=== PATIENT | female | born 1975 | race Caucasian/White ===

== ENCOUNTER 2016-12-11 12:20 | Inpatient (IN) | payer MEDICARE, OTHER ==
[~2016-12-11] VITALS: Ht 167.6 cm; Wt 69.8 kg
[~2016-12-11 12:20] MED LIST: ALPR0.5T6 PO; ATEN50TA41 PO; BACL-19 PO; CARI350T PO; CARI350T14 PO; CITA20TA5 PO; DICL1ADH5 TD; DOCU-30 PO; FLUD0.1T PO; METH1TAB13 PO; METH1TAB21 PO; METO10TA2 PO; MIRT30TA PO; MIRT30TA6 PO; MORP15TA3 PO; NAPR500T PO; NAPR500T3 PO; OMEP-110 PO; ONDA-39 PO; ONDA4TAB10 PO; ONDA4TAB13 SL; OXYC1TAB7 PO; OXYC20TA42 PO; PENT100C2 PO; POLY17PO5 PO; ROSU20TA PO; SUMA100T4 PO; TIAG2TAB PO; TOPI50TA35 PO; TOPI50TA77 PO; TRAZ100T15 PO; ZOLP10TA PO; morphine IR PO
[2016-12-11] MEDS ORDERED: VENL150C PO (12:59)
[2016-12-11] MEDS ORDERED: SODIUM CHLORIDE 0.9% 1,000ML IVBOLUS ONE ×2 (13:00→18:00)
[2016-12-11] MEDS ORDERED: ONDANSETRON 2MG/ML, 2ML IVPush ONE (13:00)
[2016-12-11] MEDS ORDERED: SODIUM CHLORIDE FLUSH 10ML SYR IVF ONE (13:00)
[2016-12-11] MEDS ORDERED: NALO25TA PO (13:02)
[2016-12-11] MEDS ORDERED: ONDANSETRON 2MG/ML, 2ML ONE (13:21)
[2016-12-11] MEDS ORDERED: HYDROmorphone 1 MG/ML, 1ML ONE ×3 (13:21→15:40)
[2016-12-11] MEDS: HYDROmorphone 1 MG/ML, 1ML IVPush PRN ×2 (13:31→15:45)
[2016-12-11 13:44] LABS: BLOOD UREA NITROGEN 51 mg/dL (7-18)
[2016-12-11 13:49] LABS: ASPARTATE AMINO TRANSFERASE 21 U/L (15-37)
[2016-12-11] MEDS ORDERED: FAMOTIDINE 20 MG/2 ML ONE (14:21)
[2016-12-11] MEDS ORDERED: FAMOTIDINE 20 MG/2 ML IVPush ONE (14:30)
[2016-12-11] MEDS ORDERED: OMNIPAQUE 350 MG/ML, 100ML BOTTLE ONE (14:47)
[2016-12-11] MEDS ORDERED: CEFTRIAXONE 1,000 MG in SODIUM CHLORIDE 0.9% 100 ML IV ONE (16:30)
[2016-12-11] MEDS ORDERED: BISACODYL 10 MG SUPP PR PRN (17:30)
[2016-12-11] MEDS ORDERED: CEFTRIAXONE 1,000 MG in SODIUM CHLORIDE 0.9% 50 ML IV SCH (17:30)
[2016-12-11] MEDS ORDERED: PROMETHAZINE 25 MG/ML, 1ML IM PRN (17:30)
[2016-12-11] MEDS: ENOXAPARIN 40 MG/0.4 ML SQ SCH (17:44)
[2016-12-11] MEDS: LACTATED RINGERS 1,000 ML IV SCH (18:39)
[2016-12-11 20:00] VITALS: BP 118/86
[2016-12-11] MEDS: FAMOTIDINE 20 MG/2 ML IVPush SCH (21:00)
[2016-12-11] MEDS: HYDROmorphone 2 MG/ML, 1ML IVPush PRN (21:42)
[2016-12-12] MEDS: LORazepam 2 MG/ML, 1ML IVPush PRN ×3 (01:46→21:13)
[2016-12-12] MEDS: HYDROmorphone 2 MG/ML, 1ML IVPush PRN ×6 (01:46→21:13)
[2016-12-12] MEDS: LACTATED RINGERS 1,000 ML IV SCH ×3 (01:59→17:53)
[2016-12-12 03:00] VITALS: BP 121/84
[2016-12-12 06:09] LABS: BLOOD UREA NITROGEN 36 mg/dL (7-18)
[2016-12-12] MEDS: FAMOTIDINE 20 MG/2 ML IVPush SCH ×2 (08:00→21:13)
[2016-12-12] MEDS: ONDANSETRON 2MG/ML, 2ML IVPush PRN ×2 (08:09→14:02)
[2016-12-12 08:55] VITALS: BP 130/78
[2016-12-12] MEDS ORDERED: HYDROmorphone 1 MG/ML, 1ML ONE ×2 (11:00→13:57)
[2016-12-12 14:16] VITALS: BP 131/96
[2016-12-12] MEDS ORDERED: CEFTRIAXONE PMX 1GM/50ML 50 ML IV SCH (17:30)
[2016-12-12] MEDS: ENOXAPARIN 40 MG/0.4 ML SQ SCH (17:53)
[2016-12-13] MEDS: LACTATED RINGERS 1,000 ML IV SCH ×2 (02:55→10:00)
[2016-12-13 03:01] VITALS: BP 142/95
[2016-12-13] MEDS: LORazepam 2 MG/ML, 1ML IVPush PRN (06:45)
[2016-12-13] MEDS: HYDROmorphone 2 MG/ML, 1ML IVPush PRN (06:45)
[2016-12-13 07:49] LABS: BLOOD UREA NITROGEN 21 mg/dL (7-18)
[2016-12-13 07:55] VITALS: BP 153/91
[2016-12-13] MEDS: FAMOTIDINE 20 MG/2 ML IVPush SCH (09:20)
[2016-12-13] MEDS ORDERED: VENLAFAXINE 75 MG CAP ER PO SCH (09:30)
[2016-12-13] MEDS ORDERED: CARISOPRODOL 350 MG TABLET PO PRN (09:30)
[2016-12-13] MEDS ORDERED: CEFD300C37 PO (11:03)
[2016-12-13] MEDS ORDERED: POLY17PO5 PO (11:16)
[2016-12-13 11:44] VITALS: BP 130/92
[2016-12-13] MEDS ORDERED: MIRTAZAPINE 30 MG TAB.RAPDIS PO SCH (21:00)
[2016-12-13] MEDS ORDERED: CEFDINIR 300 MG CAPSULE PO SCH (21:00)
== END 2016-12-13 11:50 | disposition home or self-care (01) | DRG 438 ==
LOC: ED 14:38 → SUATTDRO 16:44 → EDIP 17:05 → 4NOR 17:38
DX: K85.80 Other acute pancreatitis without necrosis or infection (principal); N17.0 Acute kidney failure with tubular necrosis; K56.60 Unspecified intestinal obstruction; R71.0 Precipitous drop in hematocrit; N39.0 Urinary tract infection, site not specified; B96.20 Unspecified Escherichia coli [E. coli] as the cause of diseases classified elsewhere; F32.9 Major depressive disorder, single episode, unspecified; F41.9 Anxiety disorder, unspecified; E78.5 Hyperlipidemia, unspecified; G40.909 Epilepsy, unspecified, not intractable, without status epilepticus; D72.829 Elevated white blood cell count, unspecified; G89.4 Chronic pain syndrome; I10 Essential (primary) hypertension; M79.7 Fibromyalgia; B96.29 Other Escherichia coli [E. coli] as the cause of diseases classified elsewhere; Z85.42 Personal history of malignant neoplasm of other parts of uterus; Z85.43 Personal history of malignant neoplasm of ovary; Z85.51 Personal history of malignant neoplasm of bladder; Z92.21 Personal history of antineoplastic chemotherapy; Z90.710 Acquired absence of both cervix and uterus; Z98.0 Intestinal bypass and anastomosis status; Z90.49 Acquired absence of other specified parts of digestive tract; Z90.721 Acquired absence of ovaries, unilateral; Z93.6 Other artificial openings of urinary tract status; Z88.5 Allergy status to narcotic agent; Z88.1 Allergy status to other antibiotic agents; Z88.6 Allergy status to analgesic agent; Z91.048 Other nonmedicinal substance allergy status; Z79.891 Long term (current) use of opiate analgesic; Z85.068 Personal history of other malignant neoplasm of small intestine; Z87.891 Personal history of nicotine dependence; Z92.3 Personal history of irradiation; Z98.84 Bariatric surgery status
CPT/HCPCS: 36415; 74020; 74177; 80048; 80053; 81001; 83690; 84478; 85025; 87077; 87086; 87186; 87210; 87808; 96361; 96374; 96375; 96376; J0696; J1170; J1650; J2405; Q9967; J2060; J7030; J7120; S0028

== ENCOUNTER 2017-02-25 03:17 | Inpatient (IN) | payer MEDICARE, OTHER ==
[~2017-02-25] VITALS: Ht 177.8 cm; Wt 74.9 kg
[~2017-02-25 03:17] MED LIST changes: +CEFD300C37 PO; +DICL1ADH15 TD; -DICL1ADH5 TD; +DOCU-131 PO; -DOCU-30 PO; +NALO25TA PO; -ONDA-39 PO; +ONDA4TAB12 PO; -TOPI50TA77 PO; +TOPI50TA8 PO; +VENL150C PO
[2017-02-25] MEDS ORDERED: SODIUM CHLORIDE FLUSH 10ML SYR IVF ONE (03:30)
[2017-02-25] MEDS ORDERED: LORazepam 2 MG/ML, 1ML IVPush ONE (03:30)
[2017-02-25] MEDS ORDERED: SODIUM CHLORIDE 0.9% 1,000ML IVBOLUS ONE (03:30)
[2017-02-25 03:34] LABS: DAU SCREEN DISCLAIMER
[2017-02-25] MEDS ORDERED: LORazepam 2 MG/ML, 1ML ONE (03:48)
[2017-02-25 03:53] LABS: HEMATOCRIT 36.2 % (34.6-47.8); WHITE BLOOD COUNT 5.7 x10^3/uL (3.4-10)
[2017-02-25 04:04] LABS: ASPARTATE AMINO TRANSFERASE 15 U/L (15-37); BLOOD UREA NITROGEN 39 mg/dL (7-18)
[2017-02-25 04:13] LABS: ACETAMINOPHEN < 2 mcg/mL (10-30)
[2017-02-25] MEDS ORDERED: CEFTRIAXONE PMX 1GM/50ML 50 ML IV ONE (04:30)
[2017-02-25] MEDS ORDERED: CEFTRIAXONE PMX 1GM/50ML 50 ML ONE (04:47)
[2017-02-25] MEDS ORDERED: MIRT30TA3 PO (04:53)
[2017-02-25] MEDS ORDERED: OXYC-302 PO (04:53)
[2017-02-25] MEDS ORDERED: TRAZ100T15 PO (04:53)
[2017-02-25] MEDS ORDERED: METO10TA82 PO (04:53)
[2017-02-25] MEDS ORDERED: ZOLP10TA5 PO (04:53)
[2017-02-25] MEDS ORDERED: TEMAZEPAM 15 MG CAPSULE PO PRN (05:30)
[2017-02-25] MEDS ORDERED: hydrALAzine 20 MG/ML, 1ML IVPush PRN (05:30)
[2017-02-25] MEDS ORDERED: CEFTRIAXONE PMX 1GM/50ML 50 ML IV SCH (05:30)
[2017-02-25] MEDS ORDERED: ACETAMINOPHEN 325 MG TABLET PO PRN (05:30)
[2017-02-25] MEDS ORDERED: ONDANSETRON 2MG/ML, 2ML IVPush PRN (05:30)
[2017-02-25] MEDS: SODIUM CHLORIDE 0.9% 1,000 ML IV SCH ×3 (05:54→21:50)
[2017-02-25 07:32] VITALS: BP 112/78
[2017-02-25] MEDS: VENLAFAXINE 75 MG CAP ER PO SCH ×2 (08:02→20:02)
[2017-02-25] MEDS: HEPARIN 5,000 UNITS/ML, 1ML SQ SCH ×2 (08:02→16:52)
[2017-02-25 11:24] VITALS: BP 111/80
[2017-02-25 12:14] VITALS: BP 109/75
[2017-02-25 13:28] VITALS: BP 112/79
[2017-02-25] MEDS: ERTAPENEM 1 GM in SODIUM CHLORIDE 0.9% 50 ML IV SCH (13:40)
[2017-02-25] MEDS ORDERED: SUMATRIPTAN 6MG/0.5ML SQ PRN (14:30)
[2017-02-25 16:55] VITALS: BP 116/83
[2017-02-25 18:50] VITALS: BP 133/87
[2017-02-25] MEDS: TRAZODONE 100MG TABLET PO SCH (19:56)
[2017-02-25] MEDS: TOPIRAMATE 25 MG TABLET PO SCH (20:04)
[2017-02-25] MEDS: MIRTAZAPINE 30 MG TAB.RAPDIS PO SCH (20:04)
[2017-02-26 00:37] VITALS: BP 116/83
[2017-02-26] MEDS: SODIUM CHLORIDE 0.9% 1,000 ML IV SCH (05:15)
[2017-02-26] MEDS: HEPARIN 5,000 UNITS/ML, 1ML SQ SCH ×3 (05:15→19:55)
[2017-02-26 06:54] LABS: BLOOD UREA NITROGEN 30 mg/dL (7-18)
[2017-02-26 06:57] LABS: HEMATOCRIT 31.8 % (34.6-47.8); HEMOGLOBIN 10.5 g/dL (11.7-16.4); WHITE BLOOD COUNT 5.7 x10^3/uL (3.4-10)
[2017-02-26] MEDS ORDERED: D5%-0.45% NACL 1,000 ML IV SCH (07:30)
[2017-02-26 08:11] VITALS: BP 117/80
[2017-02-26] MEDS: VENLAFAXINE 75 MG CAP ER PO SCH ×2 (08:44→19:55)
[2017-02-26] MEDS: ERTAPENEM 1 GM in SODIUM CHLORIDE 0.9% 50 ML IV SCH (13:42)
[2017-02-26 13:56] VITALS: BP 130/88
[2017-02-26 18:56] VITALS: BP 137/89
[2017-02-26] MEDS: OXYcodone/APAP 5/325MG TABLET PO PRN (19:54)
[2017-02-26] MEDS: TOPIRAMATE 25 MG TABLET PO SCH (19:55)
[2017-02-26] MEDS: TRAZODONE 100MG TABLET PO SCH (19:55)
[2017-02-26] MEDS: MIRTAZAPINE 30 MG TAB.RAPDIS PO SCH (19:55)
[2017-02-27 02:42] VITALS: BP 107/77
[2017-02-27] MEDS: HEPARIN 5,000 UNITS/ML, 1ML SQ SCH ×3 (05:48→20:55)
[2017-02-27] MEDS: OXYcodone/APAP 5/325MG TABLET PO PRN (06:07)
[2017-02-27] MEDS ORDERED: D5%-0.45% NACL 1,000 ML IV SCH (07:30)
[2017-02-27 07:56] VITALS: BP 123/85
[2017-02-27] MEDS: VENLAFAXINE 75 MG CAP ER PO SCH ×2 (08:00→20:55)
[2017-02-27 11:05] LABS: HEMATOCRIT 31.4 % (34.6-47.8); HEMOGLOBIN 10.5 g/dL (11.7-16.4); WHITE BLOOD COUNT 3.9 x10^3/uL (3.4-10)
[2017-02-27 11:14] LABS: BLOOD UREA NITROGEN 18 mg/dL (7-18)
[2017-02-27] MEDS ORDERED: VANCOMYCIN PER PHARMACY MC PRN (13:30)
[2017-02-27] MEDS: ERTAPENEM 1 GM in SODIUM CHLORIDE 0.9% 50 ML IV SCH (13:43)
[2017-02-27] MEDS ORDERED: PHARMACOKINETIC CONSULTATION MC ONE (15:00)
[2017-02-27 15:30] VITALS: BP 123/84
[2017-02-27] MEDS ORDERED: PHARMACOKINETIC MONITORING MC PRN (15:30)
[2017-02-27] MEDS: VANCOMYCIN 1,400 MG in SODIUM CHLORIDE 0.9% 250 ML IV SCH (17:08)
[2017-02-27 18:54] VITALS: BP 125/89
[2017-02-27] MEDS: MIRTAZAPINE 30 MG TAB.RAPDIS PO SCH (20:55)
[2017-02-27] MEDS: TOPIRAMATE 25 MG TABLET PO SCH (20:55)
[2017-02-27] MEDS: TRAZODONE 100MG TABLET PO SCH (20:55)
[2017-02-28 01:44] VITALS: BP 101/67
[2017-02-28 05:16] LABS: HEMATOCRIT 33.3 % (34.6-47.8); HEMOGLOBIN 10.9 g/dL (11.7-16.4); WHITE BLOOD COUNT 6.5 x10^3/uL (3.4-10)
[2017-02-28 05:20] LABS: BLOOD UREA NITROGEN 25 mg/dL (7-18)
[2017-02-28] MEDS: VANCOMYCIN 1,400 MG in SODIUM CHLORIDE 0.9% 250 ML IV SCH ×2 (06:12→16:49)
[2017-02-28] MEDS: HEPARIN 5,000 UNITS/ML, 1ML SQ SCH ×3 (06:12→20:54)
[2017-02-28 06:50] VITALS: BP 111/72
[2017-02-28] MEDS: VENLAFAXINE 75 MG CAP ER PO SCH ×2 (07:55→20:54)
[2017-02-28] MEDS: ERTAPENEM 1 GM in SODIUM CHLORIDE 0.9% 50 ML IV SCH (13:19)
[2017-02-28 13:50] VITALS: BP 109/75
[2017-02-28 18:44] VITALS: BP 117/81
[2017-02-28] MEDS: TRAZODONE 100MG TABLET PO SCH (20:54)
[2017-02-28] MEDS: TOPIRAMATE 25 MG TABLET PO SCH (20:54)
[2017-02-28] MEDS: MIRTAZAPINE 30 MG TAB.RAPDIS PO SCH (20:54)
[2017-03-01 04:27] VITALS: BP 107/76
[2017-03-01] MEDS: HEPARIN 5,000 UNITS/ML, 1ML SQ SCH ×3 (04:29→19:54)
[2017-03-01] MEDS: VANCOMYCIN 1,400 MG in SODIUM CHLORIDE 0.9% 250 ML IV SCH ×2 (04:29→16:49)
[2017-03-01 05:43] LABS: BLOOD UREA NITROGEN 23 mg/dL (7-18)
[2017-03-01 07:46] VITALS: BP 122/85
[2017-03-01] MEDS: VENLAFAXINE 75 MG CAP ER PO SCH ×2 (08:23→19:54)
[2017-03-01] MEDS: ERTAPENEM 1 GM in SODIUM CHLORIDE 0.9% 50 ML IV SCH (13:37)
[2017-03-01] MEDS: HYDROcodone/APAP 5/325 TABLET PO PRN (13:37)
[2017-03-01 13:41] VITALS: BP 117/83
[2017-03-01] MEDS ORDERED: hydrALAzine 20 MG/ML, 1ML IVPush PRN (19:00)
[2017-03-01] MEDS ORDERED: ONDANSETRON 2MG/ML, 2ML IVPush PRN (19:00)
[2017-03-01] MEDS ORDERED: TEMAZEPAM 15 MG CAPSULE PO PRN (19:00)
[2017-03-01] MEDS ORDERED: PHARMACOKINETIC MONITORING MC PRN (19:00)
[2017-03-01] MEDS ORDERED: VANCOMYCIN PER PHARMACY MC PRN (19:00)
[2017-03-01] MEDS: TRAZODONE 100MG TABLET PO SCH (19:54)
[2017-03-01] MEDS: TOPIRAMATE 25 MG TABLET PO SCH (19:54)
[2017-03-01] MEDS: MIRTAZAPINE 30 MG TAB.RAPDIS PO SCH (19:54)
[2017-03-01 20:00] VITALS: BP 113/78
[2017-03-02 02:00] VITALS: BP 100/67
[2017-03-02] MEDS: HEPARIN 5,000 UNITS/ML, 1ML SQ SCH ×3 (04:25→20:43)
[2017-03-02] MEDS: VANCOMYCIN 1,400 MG in SODIUM CHLORIDE 0.9% 250 ML IV SCH (04:25)
[2017-03-02 07:01] VITALS: BP 105/73
[2017-03-02] MEDS: VENLAFAXINE 75 MG CAP ER PO SCH ×2 (09:12→20:42)
[2017-03-02] MEDS: ERTAPENEM 1 GM in SODIUM CHLORIDE 0.9% 50 ML IV SCH (14:03)
[2017-03-02 14:10] VITALS: BP 117/84
[2017-03-02] MEDS: HYDROcodone/APAP 5/325 TABLET PO PRN (16:38)
[2017-03-02 20:01] VITALS: BP 103/71
[2017-03-02] MEDS: TRAZODONE 100MG TABLET PO SCH (20:42)
[2017-03-02] MEDS: TOPIRAMATE 25 MG TABLET PO SCH (20:43)
[2017-03-02] MEDS: MIRTAZAPINE 30 MG TAB.RAPDIS PO SCH (20:43)
[2017-03-03 02:00] VITALS: BP 95/65
[2017-03-03] MEDS: HEPARIN 5,000 UNITS/ML, 1ML SQ SCH ×3 (04:12→20:02)
[2017-03-03 06:43] VITALS: BP 105/70
[2017-03-03] MEDS: VENLAFAXINE 75 MG CAP ER PO SCH ×2 (09:23→20:01)
[2017-03-03] MEDS: ERTAPENEM 1 GM in SODIUM CHLORIDE 0.9% 50 ML IV SCH (12:41)
[2017-03-03 13:04] VITALS: BP 111/78
[2017-03-03] MEDS: HYDROcodone/APAP 5/325 TABLET PO PRN ×2 (13:12→19:59)
[2017-03-03] MEDS: SODIUM CHLORIDE 0.9% IV SCH (17:07)
[2017-03-03] MEDS: DAPTOMYCIN IV SCH (17:07)
[2017-03-03] MEDS ORDERED: LIDOCAINE 1%, 20ML ONE (17:38)
[2017-03-03 18:49] VITALS: BP 114/80
[2017-03-03] MEDS: TOPIRAMATE 25 MG TABLET PO SCH (20:00)
[2017-03-03] MEDS: MIRTAZAPINE 30 MG TAB.RAPDIS PO SCH (20:00)
[2017-03-03] MEDS: TRAZODONE 100MG TABLET PO SCH (20:01)
[2017-03-04 02:34] VITALS: BP 89/56
[2017-03-04 02:52] VITALS: BP 95/61
[2017-03-04] MEDS: HEPARIN 5,000 UNITS/ML, 1ML SQ SCH ×3 (05:16→21:11)
[2017-03-04 06:10] LABS: BLOOD UREA NITROGEN 31 mg/dL (7-18)
[2017-03-04] MEDS: VENLAFAXINE 75 MG CAP ER PO SCH ×2 (08:47→21:11)
[2017-03-04] MEDS: HYDROcodone/APAP 5/325 TABLET PO PRN ×2 (08:47→15:13)
[2017-03-04 08:50] VITALS: BP 105/69
[2017-03-04 13:20] VITALS: BP 112/77
[2017-03-04] MEDS: ERTAPENEM 1 GM in SODIUM CHLORIDE 0.9% 50 ML IV SCH (13:42)
[2017-03-04] MEDS: SODIUM CHLORIDE 0.9% IV SCH (15:13)
[2017-03-04] MEDS: DAPTOMYCIN IV SCH (15:13)
[2017-03-04 18:55] VITALS: BP 102/67
[2017-03-04] MEDS: TOPIRAMATE 25 MG TABLET PO SCH (21:11)
[2017-03-04] MEDS: MIRTAZAPINE 30 MG TAB.RAPDIS PO SCH (21:11)
[2017-03-04] MEDS: TRAZODONE 100MG TABLET PO SCH (21:41)
[2017-03-05 03:00] VITALS: BP 109/75
[2017-03-05] MEDS: HEPARIN 5,000 UNITS/ML, 1ML SQ SCH ×3 (05:11→20:19)
[2017-03-05 06:41] VITALS: BP 95/65
[2017-03-05] MEDS: VENLAFAXINE 75 MG CAP ER PO SCH ×2 (07:50→20:18)
[2017-03-05 13:03] VITALS: BP 98/67
[2017-03-05] MEDS: ERTAPENEM 1 GM in SODIUM CHLORIDE 0.9% 50 ML IV SCH (13:26)
[2017-03-05] MEDS: HYDROcodone/APAP 5/325 TABLET PO PRN (13:39)
[2017-03-05] MEDS: SODIUM CHLORIDE 0.9% IV SCH (15:24)
[2017-03-05] MEDS: DAPTOMYCIN IV SCH (15:24)
[2017-03-05 19:14] VITALS: BP 97/65
[2017-03-05] MEDS: MIRTAZAPINE 30 MG TAB.RAPDIS PO SCH (20:18)
[2017-03-05] MEDS: TRAZODONE 100MG TABLET PO SCH (20:18)
[2017-03-05] MEDS: TOPIRAMATE 25 MG TABLET PO SCH (20:19)
[2017-03-06 02:45] VITALS: BP 92/60
[2017-03-06] MEDS: HEPARIN 5,000 UNITS/ML, 1ML SQ SCH ×3 (05:00→21:09)
[2017-03-06] MEDS: VENLAFAXINE 75 MG CAP ER PO SCH ×2 (08:03→21:09)
[2017-03-06 08:04] VITALS: BP 101/67
[2017-03-06] MEDS: HYDROcodone/APAP 5/325 TABLET PO PRN ×2 (12:14→19:52)
[2017-03-06] MEDS: ERTAPENEM 1 GM in SODIUM CHLORIDE 0.9% 50 ML IV SCH (13:12)
[2017-03-06 13:20] VITALS: BP 120/83
[2017-03-06] MEDS: SODIUM CHLORIDE 0.9% IV SCH (14:55)
[2017-03-06] MEDS: DAPTOMYCIN IV SCH (14:55)
[2017-03-06 19:24] VITALS: BP 102/70
[2017-03-06] MEDS: MIRTAZAPINE 30 MG TAB.RAPDIS PO SCH (21:08)
[2017-03-06] MEDS: TRAZODONE 100MG TABLET PO SCH (21:09)
[2017-03-06] MEDS: TOPIRAMATE 25 MG TABLET PO SCH (21:09)
[2017-03-07 02:42] VITALS: BP 97/65
[2017-03-07] MEDS: HEPARIN 5,000 UNITS/ML, 1ML SQ SCH ×2 (05:20→12:00)
[2017-03-07] MEDS: VENLAFAXINE 75 MG CAP ER PO SCH (08:08)
[2017-03-07 08:30] VITALS: BP 98/66
[2017-03-07] MEDS ORDERED: CARISOPRODOL 350 MG TABLET PO PRN (11:00)
[2017-03-07] MEDS ORDERED: AMPICILLIN 500MG CAPSULE PO SCH (11:00)
[2017-03-07] MEDS: ERTAPENEM 1 GM in SODIUM CHLORIDE 0.9% 50 ML IV SCH (11:59)
[2017-03-07] MEDS ORDERED: AMPI500C2 PO (13:20)
== END 2017-03-07 14:00 | disposition home health service (06) | DRG 871 ==
LOC: ED 03:56 → EDIP 04:29 → 3NE 05:33 → 3NW 02-28 21:45
PROVIDERS: ADMIT Internal Medicine; ATTEND Internal Medicine
PROC: 02HV33Z Insertion of Infusion Device into Superior Vena Cava, Percutaneous Approach (ICD-10-PCS; principal; 2017-03-03)
PROC: B5181ZA Fluoroscopy of Superior Vena Cava using Low Osmolar Contrast, Guidance (ICD-10-PCS; 2017-03-03)
PROC: B548ZZA Ultrasonography of Superior Vena Cava, Guidance (ICD-10-PCS; 2017-03-03)
DX: A41.9 Sepsis, unspecified organism (principal); G93.41 Metabolic encephalopathy; N17.0 Acute kidney failure with tubular necrosis; K22.10 Ulcer of esophagus without bleeding; N12 Tubulo-interstitial nephritis, not specified as acute or chronic; N30.91 Cystitis, unspecified with hematuria; B96.1 Klebsiella pneumoniae [K. pneumoniae] as the cause of diseases classified elsewhere; B96.20 Unspecified Escherichia coli [E. coli] as the cause of diseases classified elsewhere; E78.5 Hyperlipidemia, unspecified; F17.200 Nicotine dependence, unspecified, uncomplicated; F32.9 Major depressive disorder, single episode, unspecified; G40.909 Epilepsy, unspecified, not intractable, without status epilepticus; G89.4 Chronic pain syndrome; I12.9 Hypertensive chronic kidney disease with stage 1 through stage 4 chronic kidney disease, or unspecified chronic kidney disease; N18.3 Chronic kidney disease, stage 3 (moderate); Z16.12 Extended spectrum beta lactamase (ESBL) resistance; Z79.891 Long term (current) use of opiate analgesic; Z85.42 Personal history of malignant neoplasm of other parts of uterus; Z88.6 Allergy status to analgesic agent; Z88.1 Allergy status to other antibiotic agents; Z88.8 Allergy status to other drugs, medicaments and biological substances; Z85.43 Personal history of malignant neoplasm of ovary; Z85.51 Personal history of malignant neoplasm of bladder; Z87.442 Personal history of urinary calculi; Z88.0 Allergy status to penicillin; Z90.710 Acquired absence of both cervix and uterus; Z98.84 Bariatric surgery status; Z87.440 Personal history of urinary (tract) infections
CPT/HCPCS: 36415; 36569; 70450; 71010; 72125; 74176; 76770; 76937; 77001; 80048; 80053; 80202; 80307; 80329; 81001; 82140; 82565; 83735; 84439; 84443; 84703; 85025; 87040; 87077; 87086; 87186; 93005; 95816; 95819; 96361; 96372; 96374; J0696; J0878; J1335; J1644; J3370; J3490; C1751; G0480; J2060; J3030; J7030; J7050

== ENCOUNTER 2018-05-15 11:37 | Inpatient (IN) | payer MEDICARE ==
[~2018-05-15] VITALS: Ht 177.8 cm; Wt 60.1 kg
[~2018-05-15 11:37] MED LIST changes: +AMPI500C2 PO; +ATEN25TA PO; -CITA20TA5 PO; +CITA20TA6 PO; +ERGO500017 PO; +ERTA1VIA IV; +METO10TA82 PO; +MIRT30TA3 PO; +MORP-52 PO; +NAPR-685 PO; +NAPR-856 PO; -NAPR500T PO; -NAPR500T3 PO; +ONDA4TAB7 PO; +OXYC-302 PO; +TRAZ-137 PO; -TRAZ100T15 PO; +VANC1VIA3 PO; +ZOLP10TA5 PO
[2018-05-15] MEDS ORDERED: SODIUM BICARBONATE 8.4% 150 MEQ in DEXTROSE 5% 1,000 ML IV SCH (12:30)
[2018-05-15 12:53] LABS: BASOPHILS # (AUTO) 0.02 x10^3/uL (0-0.1); BASOPHILS % (AUTO) 0 % (0-1); EOSINOPHILS # (AUTO) 0.13 x10^3/uL (0-0.4); EOSINOPHILS % (AUTO) 1 % (1-7); LYMPHOCYTES # (AUTO) 1.43 x10^3/uL (1-3.4); LYMPHOCYTES % (AUTO) 15 % (22-44); MD NO; MEAN CORPUSCULAR HEMOGLOBIN 29.4 pg (27.0-34.8); MEAN CORPUSCULAR HGB CONC 33.6 g/dL (32.4-35.8); MEAN CORPUSCULAR VOLUME 87.6 fL (80-100); MEAN PLATELET VOLUME 8.1 fL (7.4-10.4); MONOCYTES # (AUTO) 0.51 x10^3/uL (0.2-0.8); MONOCYTES % (AUTO) 6 % (2-9); NEUTROPHILS # (AUTO) 7.16 x10^3/uL (1.8-6.8); NEUTROPHILS % (AUTO) 77 % (42-75); PLATELET COUNT 353 x10^3/uL (130-400); RED BLOOD COUNT 4.64 x10^6/uL (3.82-5.3)
[2018-05-15 13:05] LABS: ALBUMIN 4.1 g/dL (3.4-5.0); ANION GAP 11 mmol/L (5-15); CALCIUM 9.2 mg/dL (8.5-10.1); CHLORIDE 106 mmol/L (98-107)
[2018-05-15 13:08] LABS: ALANINE AMINOTRANSFERASE 10 U/L (12-78); ALKALINE PHOSPHATASE 98 U/L (45-117); BILIRUBIN,TOTAL 0.4 mg/dL (0.2-1.0); CREATININE 2.46 mg/dL (0.55-1.02)
[2018-05-15] MEDS ORDERED: SODIUM BICARBONATE 8.4% 150 MEQ in DEXTROSE 5% 1,000 ML IV ONE (14:00)
[2018-05-15] MEDS ORDERED: SODIUM CHLORIDE FLUSH 10ML SYR IVF PRN (14:00)
[2018-05-15 14:12] LABS: CULTURE INDICATED? YES; MICROSCOPIC INDICATED
[2018-05-15] MEDS ORDERED: SODIUM CHLORIDE 0.9% 1,000 ML IV SCH (14:22)
[2018-05-15] MEDS ORDERED: CARI350T PO (14:23)
[2018-05-15] MEDS ORDERED: EPIN0.3A3 IM (14:23)
[2018-05-15] MEDS ORDERED: ZOLP10TA PO (14:23)
[2018-05-15] MEDS ORDERED: RANI150T23 PO (14:23)
[2018-05-15] MEDS ORDERED: NALO25TA PO (14:23)
[2018-05-15] MEDS ORDERED: hydrALAzine 20 MG/ML, 1ML IVPush PRN (14:30)
[2018-05-15] MEDS ORDERED: ACETAMINOPHEN 325 MG TABLET PO PRN (14:30)
[2018-05-15] MEDS ORDERED: ONDANSETRON 2MG/ML, 2ML IVPush PRN (14:30)
[2018-05-15] MEDS: NICOTINE 14MG/24 HR PATCH.TD24 TD SCH (14:30)
[2018-05-15 14:55] VITALS: BP 116/83
[2018-05-15] MEDS ORDERED: FAMOTIDINE 20 MG TABLET PO PRN (15:00)
[2018-05-15] MEDS ORDERED: ZOLPIDEM 10MG TABLET PO PRN (15:00)
[2018-05-15] MEDS ORDERED: SODIUM BICARB 8.4%,50ML SYR. 50 MEQ in DEXTROSE 5% 1,000 ML IV SCH (15:00)
[2018-05-15] MEDS ORDERED: PHARMACY INSTRUCTION MC SCH (15:30)
[2018-05-15] MEDS: OXYcodone/APAP 5/325MG TABLET PO SCH ×2 (16:00→22:04)
[2018-05-15] MEDS: ERTAPENEM 1 GM in SODIUM CHLORIDE 0.9% 50 ML IV SCH (16:10)
[2018-05-15] MEDS: HEPARIN 5,000 UNITS/ML, 1ML SQ SCH ×2 (16:11→22:04)
[2018-05-15] MEDS: morphine SULFATE 10 MG/ML, 1ML IVPush PRN (16:12)
[2018-05-15] MEDS: METOCLOPRAMIDE 10MG TABLET PO SCH ×2 (16:41→22:04)
[2018-05-15 21:00] VITALS: BP 94/63
[2018-05-15] MEDS: VENLAFAXINE 75 MG CAP ER PO SCH (22:04)
[2018-05-15] MEDS: TRAZODONE 100MG TABLET PO SCH (22:04)
[2018-05-15 23:05] VITALS: BP 94/63
[2018-05-16] MEDS: SODIUM BICARBONATE 8.4% 150 MEQ in DEXTROSE 5% 1,000 ML IV SCH ×3 (00:59→21:50)
[2018-05-16 02:20] VITALS: BP 101/62
[2018-05-16 04:45] LABS: BASOPHILS # (AUTO) 0.03 x10^3/uL (0-0.1); BASOPHILS % (AUTO) 1 % (0-1); EOSINOPHILS # (AUTO) 0.16 x10^3/uL (0-0.4); EOSINOPHILS % (AUTO) 2 % (1-7); LYMPHOCYTES # (AUTO) 2.03 x10^3/uL (1-3.4); LYMPHOCYTES % (AUTO) 30 % (22-44); MD NO; MEAN CORPUSCULAR HEMOGLOBIN 29.5 pg (27.0-34.8); MEAN CORPUSCULAR HGB CONC 33.8 g/dL (32.4-35.8); MEAN CORPUSCULAR VOLUME 87.3 fL (80-100); MEAN PLATELET VOLUME 8.2 fL (7.4-10.4); MONOCYTES # (AUTO) 0.48 x10^3/uL (0.2-0.8); MONOCYTES % (AUTO) 7 % (2-9); NEUTROPHILS # (AUTO) 4.06 x10^3/uL (1.8-6.8); NEUTROPHILS % (AUTO) 60 % (42-75); PLATELET COUNT 272 x10^3/uL (130-400); RED BLOOD COUNT 3.79 x10^6/uL (3.82-5.3); RED CELL DISTRIBUTION WIDTH 12.8 % (9.6-15.2)
[2018-05-16 04:52] LABS: ALANINE AMINOTRANSFERASE 12 U/L (12-78); ALBUMIN 3.3 g/dL (3.4-5.0); ANION GAP 9 mmol/L (5-15); CALCIUM 8.4 mg/dL (8.5-10.1); CHLORIDE 102 mmol/L (98-107); CREATININE 1.93 mg/dL (0.55-1.02)
[2018-05-16 04:53] LABS: ALKALINE PHOSPHATASE 70 U/L (45-117); BILIRUBIN,TOTAL 0.1 mg/dL (0.2-1.0)
[2018-05-16] MEDS: HEPARIN 5,000 UNITS/ML, 1ML SQ SCH ×3 (06:15→21:19)
[2018-05-16] MEDS: METOCLOPRAMIDE 10MG TABLET PO SCH ×4 (06:15→21:20)
[2018-05-16 06:42] VITALS: BP 90/60
[2018-05-16] MEDS: NALOXEGOL OXALATE PO SCH (09:00)
[2018-05-16] MEDS: ATENOLOL 25 MG TABLET PO SCH (09:00)
[2018-05-16] MEDS: VENLAFAXINE 75 MG CAP ER PO SCH ×2 (09:53→21:20)
[2018-05-16] MEDS: OXYcodone/APAP 5/325MG TABLET PO SCH ×3 (09:54→21:19)
[2018-05-16 13:26] VITALS: BP 93/65
[2018-05-16] MEDS: NICOTINE 14MG/24 HR PATCH.TD24 TD SCH (14:30)
[2018-05-16] MEDS: ERTAPENEM 1 GM in SODIUM CHLORIDE 0.9% 50 ML IV SCH (17:22)
[2018-05-16 19:32] VITALS: BP 96/66
[2018-05-16] MEDS: TRAZODONE 100MG TABLET PO SCH (21:19)
[2018-05-17 00:02] VITALS: BP 90/59
[2018-05-17 04:52] LABS: BASOPHILS # (AUTO) 0.02 x10^3/uL (0-0.1); BASOPHILS % (AUTO) 0 % (0-1); EOSINOPHILS # (AUTO) 0.15 x10^3/uL (0-0.4); EOSINOPHILS % (AUTO) 3 % (1-7); LYMPHOCYTES # (AUTO) 1.92 x10^3/uL (1-3.4); LYMPHOCYTES % (AUTO) 32 % (22-44); MD NO; MEAN CORPUSCULAR HEMOGLOBIN 28.7 pg (27.0-34.8); MEAN CORPUSCULAR HGB CONC 32.9 g/dL (32.4-35.8); MEAN CORPUSCULAR VOLUME 87.3 fL (80-100); MEAN PLATELET VOLUME 8.1 fL (7.4-10.4); MONOCYTES # (AUTO) 0.45 x10^3/uL (0.2-0.8); MONOCYTES % (AUTO) 8 % (2-9); NEUTROPHILS # (AUTO) 3.44 x10^3/uL (1.8-6.8); NEUTROPHILS % (AUTO) 58 % (42-75); PLATELET COUNT 237 x10^3/uL (130-400); RED BLOOD COUNT 3.52 x10^6/uL (3.82-5.3); RED CELL DISTRIBUTION WIDTH 12.6 % (9.6-15.2)
[2018-05-17 05:02] LABS: ANION GAP 9 mmol/L (5-15); CALCIUM 8.6 mg/dL (8.5-10.1); CHLORIDE 95 mmol/L (98-107); CREATININE 1.54 mg/dL (0.55-1.02)
[2018-05-17] MEDS: SODIUM BICARBONATE 8.4% 150 MEQ in DEXTROSE 5% 1,000 ML IV SCH ×2 (05:18→09:23)
[2018-05-17] MEDS: METOCLOPRAMIDE 10MG TABLET PO SCH ×4 (06:28→20:37)
[2018-05-17] MEDS: HEPARIN 5,000 UNITS/ML, 1ML SQ SCH ×3 (06:28→20:37)
[2018-05-17 07:14] VITALS: BP 95/60
[2018-05-17] MEDS: VENLAFAXINE 75 MG CAP ER PO SCH ×2 (08:05→20:37)
[2018-05-17] MEDS: ATENOLOL 25 MG TABLET PO SCH (08:06)
[2018-05-17] MEDS: NALOXEGOL OXALATE PO SCH (08:06)
[2018-05-17] MEDS: OXYcodone/APAP 5/325MG TABLET PO SCH ×3 (09:23→20:36)
[2018-05-17 12:00] VITALS: BP 96/60
[2018-05-17] MEDS: NICOTINE 14MG/24 HR PATCH.TD24 TD SCH (14:30)
[2018-05-17] MEDS: ERTAPENEM 1 GM in SODIUM CHLORIDE 0.9% 50 ML IV SCH (16:29)
[2018-05-17 18:34] VITALS: BP 97/63
[2018-05-17] MEDS: TRAZODONE 100MG TABLET PO SCH (20:37)
[2018-05-18 01:23] VITALS: BP 99/68
[2018-05-18 05:43] LABS: CHLORIDE 97 mmol/L (98-107)
[2018-05-18 05:55] LABS: ANION GAP 8 mmol/L (5-15); CALCIUM 8.8 mg/dL (8.5-10.1); CREATININE 1.22 mg/dL (0.55-1.02)
[2018-05-18] MEDS: HEPARIN 5,000 UNITS/ML, 1ML SQ SCH ×3 (06:08→22:38)
[2018-05-18] MEDS: METOCLOPRAMIDE 10MG TABLET PO SCH ×4 (06:08→21:18)
[2018-05-18 06:36] VITALS: BP 103/69
[2018-05-18] MEDS: VENLAFAXINE 75 MG CAP ER PO SCH ×2 (08:29→21:19)
[2018-05-18] MEDS: NALOXEGOL OXALATE PO SCH (08:29)
[2018-05-18] MEDS: ATENOLOL 25 MG TABLET PO SCH (08:29)
[2018-05-18] MEDS ORDERED: POTASSIUM CHLORIDE 20 MEQ TAB.ER.PRT PO ONE (08:30)
[2018-05-18 08:40] LABS: INTERNATIONAL NORMALIZED RATIO 0.96 (0.93-1.1)
[2018-05-18] MEDS: LACTOBACILLUS CHEW TABLET PO SCH ×3 (09:17→21:18)
[2018-05-18] MEDS: OXYcodone/APAP 5/325MG TABLET PO SCH ×3 (09:17→21:18)
[2018-05-18] MEDS ORDERED: LIDOCAINE-MPF 1%, 5ML ONE ×2 (09:57→10:24)
[2018-05-18 12:10] VITALS: BP 96/66
[2018-05-18] MEDS: SODIUM CHLORIDE 0.9% 1,000 ML IV SCH (12:57)
[2018-05-18] MEDS: NICOTINE 14MG/24 HR PATCH.TD24 TD SCH (14:30)
[2018-05-18] MEDS: ERTAPENEM 1 GM in SODIUM CHLORIDE 0.9% 50 ML IV SCH (16:01)
[2018-05-18 19:00] VITALS: BP 97/64
[2018-05-18] MEDS: TRAZODONE 100MG TABLET PO SCH (21:18)
[2018-05-19 00:03] VITALS: BP 115/78
[2018-05-19] MEDS: SODIUM CHLORIDE 0.9% 1,000 ML IV SCH ×2 (00:49→10:50)
[2018-05-19] MEDS: METOCLOPRAMIDE 10MG TABLET PO SCH ×3 (05:15→16:56)
[2018-05-19] MEDS: HEPARIN 5,000 UNITS/ML, 1ML SQ SCH ×2 (05:15→14:49)
[2018-05-19 06:38] VITALS: BP 99/64
[2018-05-19] MEDS: ATENOLOL 25 MG TABLET PO SCH (09:00)
[2018-05-19] MEDS: NALOXEGOL OXALATE PO SCH (09:00)
[2018-05-19] MEDS: morphine SULFATE 10 MG/ML, 1ML IVPush PRN (09:51)
[2018-05-19 12:31] VITALS: BP 103/49
[2018-05-19] MEDS: LACTOBACILLUS CHEW TABLET PO SCH ×2 (12:34→16:56)
[2018-05-19] MEDS: VENLAFAXINE 75 MG CAP ER PO SCH (12:34)
[2018-05-19] MEDS: OXYcodone/APAP 5/325MG TABLET PO SCH ×2 (12:34→16:56)
[2018-05-19] MEDS ORDERED: MIDAZOLAM 1 MG/ML, 5ML ONE (13:14)
[2018-05-19] MEDS ORDERED: FENTANYL PF 100 MCG/2ML ONE (13:14)
[2018-05-19] MEDS ORDERED: FLUMAZENIL 0.1 MG/1 ML, 5ML ONE (13:15)
[2018-05-19] MEDS ORDERED: NALOXONE 1 MG/ML, 2ML ONE (13:15)
[2018-05-19] MEDS ORDERED: LIDOCAINE-MPF 1%, 5ML ONE (13:53)
[2018-05-19] MEDS: NICOTINE 14MG/24 HR PATCH.TD24 TD SCH (14:30)
[2018-05-19] MEDS ORDERED: ACID1TAB7 PO (14:56)
[2018-05-19] MEDS ORDERED: ERTA1VIA IV (14:56)
[2018-05-19] MEDS ORDERED: POTASSIUM CHLORIDE 20 MEQ TAB.ER.PRT PO ONE (15:00)
[2018-05-19 15:46] LABS: CREATININE,URINE RANDOM 56.3 mg/dL
[2018-05-19 16:17] LABS: ANA SCREEN NEGATIVE (Negative)
[2018-05-19] MEDS: ERTAPENEM 1 GM in SODIUM CHLORIDE 0.9% 50 ML IV SCH (16:53)
== END 2018-05-19 18:06 | disposition home or self-care (01) | DRG 682 ==
LOC: ED 13:55 → 4WST 14:22 → 3NW 20:00
PROVIDERS: ADMIT Internal Medicine; ATTEND Internal Medicine
PROC: 02HV33Z Insertion of Infusion Device into Superior Vena Cava, Percutaneous Approach (ICD-10-PCS; principal; 2018-05-19)
DX: N17.9 Acute kidney failure, unspecified (principal); K85.00 Idiopathic acute pancreatitis without necrosis or infection; E87.1 Hypo-osmolality and hyponatremia; E87.2 Acidosis; F11.20 Opioid dependence, uncomplicated; N39.0 Urinary tract infection, site not specified; I95.9 Hypotension, unspecified; B96.20 Unspecified Escherichia coli [E. coli] as the cause of diseases classified elsewhere; B96.89 Other specified bacterial agents as the cause of diseases classified elsewhere; Z85.51 Personal history of malignant neoplasm of bladder; Z85.43 Personal history of malignant neoplasm of ovary; Z85.42 Personal history of malignant neoplasm of other parts of uterus; Z85.068 Personal history of other malignant neoplasm of small intestine; Z82.49 Family history of ischemic heart disease and other diseases of the circulatory system; N20.0 Calculus of kidney; E78.5 Hyperlipidemia, unspecified; E87.6 Hypokalemia; F17.200 Nicotine dependence, unspecified, uncomplicated; G40.909 Epilepsy, unspecified, not intractable, without status epilepticus; G89.4 Chronic pain syndrome; I12.9 Hypertensive chronic kidney disease with stage 1 through stage 4 chronic kidney disease, or unspecified chronic kidney disease; K21.9 Gastro-esophageal reflux disease without esophagitis; M79.7 Fibromyalgia; N18.3 Chronic kidney disease, stage 3 (moderate); Z80.0 Family history of malignant neoplasm of digestive organs; Z86.19 Personal history of other infectious and parasitic diseases; Z87.440 Personal history of urinary (tract) infections; Z87.442 Personal history of urinary calculi; Z90.49 Acquired absence of other specified parts of digestive tract; Z98.84 Bariatric surgery status; Z90.710 Acquired absence of both cervix and uterus; F32.9 Major depressive disorder, single episode, unspecified; F41.9 Anxiety disorder, unspecified; G43.909 Migraine, unspecified, not intractable, without status migrainosus; Z88.8 Allergy status to other drugs, medicaments and biological substances; Z88.6 Allergy status to analgesic agent; Z88.1 Allergy status to other antibiotic agents; Z91.030 Bee allergy status; M54.16 Radiculopathy, lumbar region; Z90.721 Acquired absence of ovaries, unilateral
CPT/HCPCS: 36415; 36569; 71045; 76770; 76937; 77001; 80048; 80053; 81001; 82570; 83520; 83605; 83690; 83735; 84100; 84155; 84156; 84165; 84443; 85025; 85610; 86038; 86160; 86162; 86256; 87040; 87077; 87086; 87186; 93005; 96374; 99285; G0378; J1335; J1644; J2250; J3010; J7070; C1751; C1769; J2270; J2310; J7030

== ENCOUNTER 2019-06-12 18:01 | Emergency (ER) | payer MEDICARE ==
[~2019-06-12] VITALS: Ht 177.8 cm; Wt 60.0 kg
[~2019-06-12 18:01] MED LIST changes: +ACID1TAB7 PO; +AMOX-367 PO; +EPIN0.3A3 IM; -MIRT30TA6 PO; +MIRT30TA97 PO; +MORP-29 PO; -MORP15TA3 PO; +RANI-467 PO; -ROSU20TA PO; +ROSU20TA2 PO; +VANC125C3 PO
--- NOTE | 2019-06-12 18:54 | NUR ---
LATE ENTRY D/T PATIENT CARE: PT TO RM FROM TRIAGE. PT AMBULATORY IN . PT IN HOSPITAL GOWN, CONNECTED TO BP, CONT PULSE OX. PT STATES SHE HAD A FALL WHILE ATTEMPTING TO RESTRAIN A DOG, PT FELL ON KNEE AND BEGAN HAVING EXTREME BACK PAIN. PT WITH HX OF CHRONIC BACK PAIN. PT ALSO STATES SHE FELT SHE PEED HER PANTS AND NOTED VAG BLEEDING, DARK RED. THIS RN ASSISTED ERMD IN VAGINAL EXAM. NO BLEEDING NOTED, ALTHOUGH PT WITH THICK GREEN/YELLOW DISCHARGE. MD TO ORDER PT PAIN MEDICATION. AWAITING ORDERS
[2019-06-12] MEDS ORDERED: HYDROmorphone 2 MG/ML, 1ML ONE (18:56)
[2019-06-12] MEDS ORDERED: HYDROmorphone 2 MG/ML, 1ML IM ONE (19:00)
[2019-06-12 19:03] VITALS: BP 107/68
--- NOTE | 2019-06-12 19:04 | NUR ---
PT RESTING ON GURNEY, MONITORS IN PLACE, CALL LIGHT WITHIN REACH. PT MEDICATED PER SEP
== END 2019-06-12 19:49 | disposition home or self-care (01) ==
LOC: ED 18:49
DX: S39.012A Strain of muscle, fascia and tendon of lower back, initial encounter (principal); I10 Essential (primary) hypertension; E78.5 Hyperlipidemia, unspecified; Z85.51 Personal history of malignant neoplasm of bladder; Z85.42 Personal history of malignant neoplasm of other parts of uterus; Z90.49 Acquired absence of other specified parts of digestive tract; Z90.710 Acquired absence of both cervix and uterus; F17.200 Nicotine dependence, unspecified, uncomplicated; X58.XXXA Exposure to other specified factors, initial encounter; Y93.89 Activity, other specified; Y92.89 Other specified places as the place of occurrence of the external cause; Y99.8 Other external cause status
CPT/HCPCS: 96372; 99283; J1170

== ENCOUNTER 2019-07-22 11:18 | Emergency (ER) | payer MEDICARE, OTHER ==
[~2019-07-22] VITALS: Ht 177.8 cm; Wt 62.4 kg
--- NOTE | 2019-07-22 13:31 | NUR ---
XEROX MACHINE MECHANIC: PT TO ROOM FROM ALEKSANDER NUR
[2019-07-22] MEDS ORDERED: SODIUM CHLORIDE FLUSH 10ML SYR IVF ONE (14:00)
--- NOTE | 2019-07-22 14:04 | NUR ---
AISHWARYA HERNANDEZ AT BEDSIDE FOR EVALUATION
[2019-07-22 14:36] LABS: CULTURE INDICATED? YES; MICROSCOPIC INDICATED
[2019-07-22 14:47] LABS: ALBUMIN 4.1 g/dL (3.4-5.0); ANION GAP 7 mmol/L (5-15); CALCIUM 8.9 mg/dL (8.5-10.1); CHLORIDE 111 mmol/L (98-107); CREATININE 1.57 mg/dL (0.55-1.02)
[2019-07-22 14:51] LABS: BASOPHILS # (AUTO) 0.01 x10^3/uL (0-0.1); BASOPHILS % (AUTO) 0 % (0-1); EOSINOPHILS # (AUTO) 0.16 x10^3/uL (0-0.4); EOSINOPHILS % (AUTO) 2 % (1-7); LYMPHOCYTES # (AUTO) 1.15 x10^3/uL (1-3.4); LYMPHOCYTES % (AUTO) 15 % (22-44); MD NO; MEAN CORPUSCULAR HEMOGLOBIN 29.7 pg (27.0-34.8); MEAN CORPUSCULAR HGB CONC 33.1 g/dL (32.4-35.8); MEAN CORPUSCULAR VOLUME 89.8 fL (80-100); MEAN PLATELET VOLUME 8.2 fL (7.4-10.4); MONOCYTES # (AUTO) 0.51 x10^3/uL (0.2-0.8); MONOCYTES % (AUTO) 7 % (2-9); NEUTROPHILS # (AUTO) 5.87 x10^3/uL (1.8-6.8); NEUTROPHILS % (AUTO) 76 % (42-75); PLATELET COUNT 232 x10^3/uL (130-400); RED BLOOD COUNT 3.88 x10^6/uL (3.82-5.3); RED CELL DISTRIBUTION WIDTH 13.6 % (9.6-15.2)
[2019-07-22] MEDS ORDERED: ONDANSETRON ODT 4 MG ONE (15:46)
--- NOTE | 2019-07-22 15:53 | NUR ---
BREAK RN; PATIENT RECEIVED ZOFRAN 4MG FOR NAUSEA. PATIENT STATES SHE IS IN PAIN WILL SPEAK WITH ED MD. PATIENT AOX4 NO OTHER NEEDS AT THIS TIME
[2019-07-22] MEDS ORDERED: HYDROmorphone 1 MG/ML, 1ML INJ ONE (15:59)
[2019-07-22] MEDS ORDERED: HYDROmorphone 2 MG/ML, 1ML IVPush ONE (16:00)
[2019-07-22] MEDS ORDERED: SODIUM CHLORIDE 0.9% 1,000ML IVBOLUS ONE (16:00)
[2019-07-22] MEDS ORDERED: ONDANSETRON ODT 4 MG PO ONE (16:00)
[2019-07-22] MEDS ORDERED: FOSFOMYCIN 3 GM PACKET ONE (16:23)
[2019-07-22] MEDS ORDERED: FOSFOMYCIN 3 GM PACKET PO ONE (16:30)
--- NOTE | 2019-07-22 17:00 | NUR ---
MEDICATED ORDERED, RESTING IN BED. CALL LIGHT IN REACH
[2019-07-22 17:45] VITALS: BP 109/72
--- NOTE | 2019-07-22 18:19 | NUR ---
DISCHARGE INSTRUCTIONS REVIEWED.
== END 2019-07-22 18:34 | disposition home or self-care (01) ==
LOC: ED 14:49
DX: N30.01 Acute cystitis with hematuria (principal); R11.2 Nausea with vomiting, unspecified; I10 Essential (primary) hypertension; Z90.710 Acquired absence of both cervix and uterus; Z79.899 Other long term (current) drug therapy
CPT/HCPCS: 36415; 80048; 81001; 82040; 83605; 84145; 85025; 87040; 87077; 87086; 87186; 96361; 96374; 99283; J1170; J7030; Q0162

== ENCOUNTER 2019-09-01 19:45 | Emergency (ER) | payer MEDICARE ==
[~2019-09-01] VITALS: Ht 177.8 cm; Wt 58.3 kg
[~2019-09-01 19:45] MED LIST changes: +ONDA-89 PO; -ONDA4TAB12 PO; -TRAZ-137 PO; +TRAZ-175 PO
[2019-09-01 21:42] LABS: BASOPHILS # (AUTO) 0.02 x10^3/uL (0-0.1); BASOPHILS % (AUTO) 0 % (0-1); EOSINOPHILS # (AUTO) 0.23 x10^3/uL (0-0.4); EOSINOPHILS % (AUTO) 3 % (1-7); LYMPHOCYTES # (AUTO) 1.73 x10^3/uL (1-3.4); LYMPHOCYTES % (AUTO) 25 % (22-44); MD NO; MEAN CORPUSCULAR HEMOGLOBIN 29.6 pg (27.0-34.8); MEAN CORPUSCULAR HGB CONC 33.4 g/dL (32.4-35.8); MEAN CORPUSCULAR VOLUME 88.6 fL (80-100); MONOCYTES # (AUTO) 0.42 x10^3/uL (0.2-0.8); MONOCYTES % (AUTO) 6 % (2-9); NEUTROPHILS # (AUTO) 4.54 x10^3/uL (1.8-6.8); NEUTROPHILS % (AUTO) 66 % (42-75); PLATELET COUNT 246 x10^3/uL (130-400); RED BLOOD COUNT 3.84 x10^6/uL (3.82-5.3); RED CELL DISTRIBUTION WIDTH 14.2 % (9.6-15.2)
[2019-09-01 21:53] LABS: ALBUMIN 3.8 g/dL (3.4-5.0); ANION GAP 9 mmol/L (5-15); CALCIUM 8.4 mg/dL (8.5-10.1); CHLORIDE 114 mmol/L (98-107)
[2019-09-01 21:56] LABS: ALANINE AMINOTRANSFERASE 12 U/L (12-78); ALKALINE PHOSPHATASE 60 U/L (45-117); BILIRUBIN,TOTAL 0.2 mg/dL (0.2-1.0); CREATININE 1.92 mg/dL (0.55-1.02); TOTAL PROTEIN 7.1 g/dL (6.4-8.2)
[2019-09-01] MEDS ORDERED: HYDROmorphone 1 MG/ML, 1ML INJ ONE (22:59)
[2019-09-01] MEDS ORDERED: ONDANSETRON 2MG/ML, 2ML ONE (22:59)
[2019-09-01] MEDS ORDERED: HYDROmorphone 1 MG/ML, 1ML INJ IV ONE (23:00)
[2019-09-01] MEDS ORDERED: SODIUM CHLORIDE 0.9% 1,000ML IVBOLUS ONE (23:00)
[2019-09-01] MEDS ORDERED: ONDANSETRON 2MG/ML, 2ML IVPush ONE (23:00)
[2019-09-01 23:03] LABS: MICROSCOPIC INDICATED
[2019-09-01 23:26] LABS: CULTURE INDICATED? YES
[2019-09-02] MEDS ORDERED: SODIUM CHLORIDE 0.9% 1,000ML IVBOLUS ONE (00:30)
[2019-09-02] MEDS ORDERED: ONDANSETRON 2MG/ML, 2ML ONE (00:57)
[2019-09-02] MEDS ORDERED: OXYcodone/APAP 10/325MG TABLET ONE (00:57)
[2019-09-02] MEDS ORDERED: ONDANSETRON 2MG/ML, 2ML IVPush ONE (01:00)
[2019-09-02] MEDS ORDERED: OXYcodone/APAP 10/325MG TABLET PO ONE (01:00)
[2019-09-02 01:12] VITALS: BP 112/75
== END 2019-09-02 01:30 | disposition home or self-care (01) ==
LOC: ED 09-02 00:45
DX: R10.84 Generalized abdominal pain (principal); R11.2 Nausea with vomiting, unspecified; R19.7 Diarrhea, unspecified; R06.02 Shortness of breath; I10 Essential (primary) hypertension; E78.5 Hyperlipidemia, unspecified; G40.909 Epilepsy, unspecified, not intractable, without status epilepticus; Z90.710 Acquired absence of both cervix and uterus; Z85.51 Personal history of malignant neoplasm of bladder; Z85.43 Personal history of malignant neoplasm of ovary; Z90.49 Acquired absence of other specified parts of digestive tract; Z90.89 Acquired absence of other organs
CPT/HCPCS: 36415; 71046; 80053; 81001; 85025; 87086; 93005; 96361; 96374; 96375; 96376; 99285; J1170; J2405; J7030

== ENCOUNTER 2020-01-29 18:46 | Emergency (ER) | payer MEDICARE, OTHER ==
[~2020-01-29 18:46] MED LIST changes: +BUPR1PAT21 TD; -DICL1ADH15 TD; +DICL1PAT11 TD; +ERTA1VIA4 IV; +OXYC5CAP2 PO; +TRAZ50TA66 PO; +VENL150T PO; +ZOLP-413 PO
[2020-01-29] MEDS ORDERED: SODIUM CHLORIDE FLUSH 10ML SYR IVF ONE (19:30)
[2020-01-29] MEDS ORDERED: SODIUM CHLORIDE 0.9% 1,000ML IVBOLUS ONE (19:30)
[2020-01-29] MEDS ORDERED: METOCLOPRAMIDE 5 MG/ML, 2ML IVPush ONE (19:30)
[2020-01-29] MEDS ORDERED: HYDROmorphone 2 MG/ML, 1ML IVPush ONE (19:30)
[2020-01-29] MEDS ORDERED: DIPHENHYDRAMINE 50 MG/ML, 1ML IVPush ONE (19:30)
[2020-01-29] MEDS ORDERED: METOCLOPRAMIDE 5 MG/ML, 2ML ONE (19:47)
[2020-01-29] MEDS ORDERED: DIPHENHYDRAMINE 50 MG/ML, 1ML ONE (19:47)
[2020-01-29] MEDS ORDERED: HYDROmorphone 1 MG/ML, 1ML INJ ONE (19:48)
[2020-01-29] MEDS ORDERED: PLEASE ENTER HEIGHT AND WEIGHT MC SCH (20:00)
[2020-01-29 20:10] LABS: BASOPHILS # (AUTO) 0.01 x10^3/uL (0-0.1); BASOPHILS % (AUTO) 0 % (0-1); EOSINOPHILS # (AUTO) 0.15 x10^3/uL (0-0.4); EOSINOPHILS % (AUTO) 3 % (1-7); LYMPHOCYTES # (AUTO) 1.87 x10^3/uL (1-3.4); LYMPHOCYTES % (AUTO) 37 % (22-44); MD NO; MEAN CORPUSCULAR HEMOGLOBIN 30.1 pg (27.0-34.8); MEAN CORPUSCULAR HGB CONC 32.3 g/dL (32.4-35.8); MEAN PLATELET VOLUME 7.8 fL (7.4-10.4); MONOCYTES # (AUTO) 0.46 x10^3/uL (0.2-0.8); MONOCYTES % (AUTO) 9 % (2-9); NEUTROPHILS # (AUTO) 2.58 x10^3/uL (1.8-6.8); NEUTROPHILS % (AUTO) 51 % (42-75); PLATELET COUNT 229 x10^3/uL (130-400); RED CELL DISTRIBUTION WIDTH 15.2 % (9.6-15.2)
[2020-01-29 20:22] LABS: ALANINE AMINOTRANSFERASE 13 U/L (12-78); ALBUMIN 3.8 g/dL (3.4-5.0); ANION GAP 6 mmol/L (5-15); CALCIUM 8.3 mg/dL (8.5-10.1); CHLORIDE 111 mmol/L (98-107); CREATININE 1.58 mg/dL (0.55-1.02)
[2020-01-29 20:25] LABS: ALKALINE PHOSPHATASE 74 U/L (45-117); BILIRUBIN,TOTAL 0.2 mg/dL (0.2-1.0); TOTAL PROTEIN 7.4 g/dL (6.4-8.2)
[2020-01-29 20:46] LABS: MICROSCOPIC INDICATED
[2020-01-29 21:15] VITALS: BP 99/68
[2020-01-29] MEDS ORDERED: FOSFOMYCIN 3 GM PACKET ONE (21:25)
[2020-01-29] MEDS ORDERED: FOSFOMYCIN 3 GM PACKET PO ONE (21:30)
== END 2020-01-29 22:24 | disposition home or self-care (01) ==
LOC: ED 19:16 → MERGE 19:16 → ED 22:24
DX: N30.00 Acute cystitis without hematuria (principal); N28.9 Disorder of kidney and ureter, unspecified; E86.0 Dehydration; R11.2 Nausea with vomiting, unspecified; K59.00 Constipation, unspecified; F17.290 Nicotine dependence, other tobacco product, uncomplicated
CPT/HCPCS: 36415; 80053; 81001; 83690; 85025; 87077; 87086; 87186; 96361; 96374; 96375; 99284; J1170; J1200; J2765; J7030

== ENCOUNTER 2020-03-01 14:18 | Emergency (ER) | payer MEDICARE ==
[~2020-03-01] VITALS: Ht 177.8 cm; Wt 60.0 kg
[~2020-03-01 14:18] MED LIST changes: +DICL1ADH15 TD; -DICL1PAT11 TD
--- NOTE | 2020-03-01 14:36 | NUR ---
BIB EMS FOR N/V DARK URINE FROM HER ILLEOURTERINE CONDUIT. WEAKNESS/SOB, SORE THROAT. PT IN BED IN GOWN WITH CONT BP Q 30 MIN, SPO2, CALL LIGHT IN REACH.
[2020-03-01] MEDS ORDERED: SODIUM CHLORIDE 0.9% 1,000ML IVBOLUS ONE ×2 (15:00→18:00)
[2020-03-01] MEDS ORDERED: SODIUM CHLORIDE FLUSH 10ML SYR IVF ONE (15:00)
[2020-03-01] MEDS ORDERED: KETOROLAC 30 MG/1 ML ONE (15:12)
[2020-03-01] MEDS ORDERED: KETOROLAC 30 MG/1 ML IVPush ONE (15:30)
[2020-03-01 15:34] LABS: BASOPHILS % (AUTO) 0 % (0-1); EOSINOPHILS % (AUTO) 0 % (1-7); LYMPHOCYTES # (AUTO) 0.61 x10^3/uL (1-3.4); LYMPHOCYTES % (AUTO) 8 % (22-44); MD NO; MEAN CORPUSCULAR HEMOGLOBIN 30.5 pg (27.0-34.8); MEAN CORPUSCULAR HGB CONC 32.9 g/dL (32.4-35.8); MEAN CORPUSCULAR VOLUME 92.9 fL (80-100); MEAN PLATELET VOLUME 8.7 fL (7.4-10.4); MONOCYTES # (AUTO) 0.38 x10^3/uL (0.2-0.8); MONOCYTES % (AUTO) 5 % (2-9); NEUTROPHILS # (AUTO) 6.85 x10^3/uL (1.8-6.8); NEUTROPHILS % (AUTO) 87 % (42-75); PLATELET COUNT 205 x10^3/uL (130-400); RED CELL DISTRIBUTION WIDTH 14.7 % (9.6-15.2)
[2020-03-01 15:42] LABS: ALBUMIN 3.9 g/dL (3.4-5.0); ANION GAP 10 mmol/L (5-15); CHLORIDE 115 mmol/L (98-107); CREATININE 1.93 mg/dL (0.55-1.02)
[2020-03-01 15:44] LABS: CREATINE KINASE, TOTAL 56 U/L (26-192)
--- NOTE | 2020-03-01 15:54 | NUR ---
REPORT RECEIVED FROM NIKKI LOYA. PLAN OF CARE DISCUSSED
--- NOTE | 2020-03-01 16:10 | NUR ---
STERILE UA COLLECTED AND WALKED TO LAB
[2020-03-01 16:30] LABS: MICROSCOPIC INDICATED
[2020-03-01] MEDS ORDERED: FOSFOMYCIN 3 GM PACKET ONE (17:04)
[2020-03-01] MEDS ORDERED: ONDANSETRON 2MG/ML, 2ML ONE (17:05)
[2020-03-01] MEDS ORDERED: OXYcodone/APAP 5/325MG TABLET ONE (17:13)
--- NOTE | 2020-03-01 17:22 | NUR ---
PATIENT MEDICATED PER EMAR, TOLERATED WELL
[2020-03-01] MEDS ORDERED: OXYcodone/APAP 5/325MG TABLET PO ONE (17:30)
[2020-03-01] MEDS ORDERED: ONDANSETRON 2MG/ML, 2ML IVPush ONE (18:00)
[2020-03-01] MEDS ORDERED: FOSFOMYCIN 3 GM PACKET PO ONE (18:00)
[2020-03-01 18:18] VITALS: BP 127/88
--- NOTE | 2020-03-01 18:26 | NUR ---
Patient given discharge instructions and they have confirmed that they understand the instructions. Patient ambulatory with steady gait in room, wheeled to discharge per patient request. on his way for safe transport home.
== END 2020-03-01 18:38 | disposition home or self-care (01) ==
LOC: ED 16:47
DX: B34.9 Viral infection, unspecified (principal); R11.2 Nausea with vomiting, unspecified; R51 Headache; I10 Essential (primary) hypertension; Z85.51 Personal history of malignant neoplasm of bladder
CPT/HCPCS: 36415; 71045; 80048; 81001; 82040; 82550; 83605; 84145; 85025; 87040; 96361; 96374; 96375; 99284; J1885; J2405; J7030

== ENCOUNTER 2020-07-28 07:35 | Observation (INO) | payer MEDICARE ==
[~2020-07-28] VITALS: Ht 177.8 cm; Wt 54.0 kg
[~2020-07-28 07:35] MED LIST changes: -DICL1ADH15 TD; +DICL1PAT13 TD; +MIRT-38 PO; -MIRT30TA PO; -NALO25TA PO; +NALO25TA4 PO
--- NOTE | 2020-07-28 07:40 | NUR ---
PATIENT IS A 44F BIB EMS FOR N/V X 2 DAYS, EXTENSIVE HISTORY OF CANCER AND RECENT WEIGHT LOSS OF 20LBS PER PATIENT. SHE ALSO COMPLAINS OF RIGHT AND LEFT LOWER QUADRANT PAIN. PATIENT HAS A HX OF VRE AND URINE IS NOTED TO BE ANNABEL IN COLOR. PROVIDER AT BEDSIDE. FIGHTING VEHICLE SYSTEMS MAINTAINER, CONITNUOUS SPO2, AND CYCLING VITALS. CALL LIGHT IN PLACE.
[2020-07-28] MEDS ORDERED: SODIUM CHLORIDE 0.9% 1,000ML IVBOLUS ONE (08:00)
[2020-07-28] MEDS ORDERED: MORPHINE SULFATE 4 MG/ML, 1ML IVPush PRN (08:00)
[2020-07-28] MEDS ORDERED: PROMETHAZINE 25 MG/ML, 1ML IM ONE (08:00)
[2020-07-28] MEDS ORDERED: SODIUM CHLORIDE FLUSH 10ML SYR IVF ONE (08:00)
[2020-07-28] MEDS ORDERED: LEVOFLOXACIN/PMX 750MG/150ML 150 ML IV ONE (08:00)
[2020-07-28] MEDS ORDERED: PROMETHAZINE 25 MG/ML, 1ML ONE (08:12)
[2020-07-28] MEDS ORDERED: HYDROmorphone 1 MG/ML, 1ML INJ ONE ×2 (08:13→08:58)
[2020-07-28] MEDS ORDERED: LEVOFLOXACIN/PMX 750MG/150ML 150 ML ONE (08:13)
--- NOTE | 2020-07-28 08:26 | NUR ---
EJ STARTED, PT TOLERATED WELL, BLOOD CULTURES DRAWN X 2. MEDICATED PER MAR, WARM BLANKET GIVEN, CALL LIGHT IN PLACE, DISCUSSED PLAN OF CARE. PT VERBALIZED NO ADDITIONAL NEEDS
[2020-07-28] MEDS: HYDROmorphone 2 MG/ML, 1ML IVPush PRN ×2 (08:28→09:34)
[2020-07-28 08:32] LABS: BASOPHILS % (AUTO) 1 % (0-1); EOSINOPHILS % (AUTO) 1 % (1-7); LYMPHOCYTES % (AUTO) 13 % (22-44); MEAN CORPUSCULAR HEMOGLOBIN 31.2 pg (27.0-34.8); MEAN CORPUSCULAR HGB CONC 32.7 g/dL (32.4-35.8); MEAN PLATELET VOLUME 8.2 fL (7.4-10.4); MONOCYTES % (AUTO) 13 % (2-9); NEUTROPHILS % (AUTO) 73 % (42-75); PLATELET COUNT 250 x10^3/uL (130-400); RED BLOOD COUNT 3.99 x10^6/uL (3.82-5.3); RED CELL DISTRIBUTION WIDTH 16.3 % (9.6-15.2)
[2020-07-28 08:37] LABS: MD NO
[2020-07-28 08:44] LABS: ALANINE AMINOTRANSFERASE 15 U/L (12-78); ALBUMIN 4.1 g/dL (3.4-5.0); ANION GAP 8 mmol/L (5-15); CALCIUM 9.1 mg/dL (8.5-10.1); CHLORIDE 111 mmol/L (98-107); CREATININE 1.79 mg/dL (0.55-1.02)
[2020-07-28 08:49] LABS: ALKALINE PHOSPHATASE 68 U/L (45-117); BILIRUBIN,TOTAL 0.3 mg/dL (0.2-1.0); TOTAL PROTEIN 8.2 g/dL (6.4-8.2)
--- NOTE | 2020-07-28 09:06 | NUR ---
PATIENT COMPLAINED OF PAIN, MEDICATED PER EMAR. PATIENT RESTING COMFORTABLY, CALL LIGHT WITHIN REACH.
[2020-07-28 09:12] LABS: MICROSCOPIC INDICATED
--- NOTE | 2020-07-28 09:58 | NUR ---
PT RESTING COMFORTABLY IN BED WITH CALL LIGHT IN PLACE. NO ADDITIONAL NEEDS AT THIS TIME.
[2020-07-28] MEDS ORDERED: LEVOFLOXACIN/PMX 750MG/150ML 150 ML IV SCH (11:00)
[2020-07-28] MEDS ORDERED: DOCUSATE 100 MG CAPSULE PO PRN (11:00)
[2020-07-28] MEDS ORDERED: MELATONIN 5 MG TABLET PO PRN (11:00)
[2020-07-28] MEDS ORDERED: BISACODYL 10 MG SUPP PR PRN (11:00)
[2020-07-28] MEDS ORDERED: POLYETHYLENE GLYCOL 17 GM PACKET PO PRN (11:00)
[2020-07-28] MEDS ORDERED: hydrALAzine 20 MG/ML, 1ML IVPush PRN (11:00)
[2020-07-28] MEDS ORDERED: ACETAMINOPHEN 325 MG TABLET PO PRN (11:00)
[2020-07-28] MEDS ORDERED: ONDANSETRON 2MG/ML, 2ML ONE (11:32)
[2020-07-28] MEDS: ONDANSETRON 2MG/ML, 2ML IVPush PRN ×2 (11:34→20:25)
--- NOTE | 2020-07-28 11:35 | NUR ---
PT C/O OF NAUSEA MEDICATED PER ORDERS, PT RESTING, WILL BE ADMITTED, PT VERBALZIED UNDERSTANDING, PT VERBALIZED NO NEEDS AT THIS TIME, RESTING, CALL LIGHT IN PLACE
--- NOTE | 2020-07-28 12:01 | NUR ---
REPORT TO STEPHANE JORDAN, PLAN OF CARE DISCUSSED
--- NOTE | 2020-07-28 12:02 | NUR ---
BEDSIDE REPORT RECEIVED FROM NIKKI VELÁSQUEZ FOR TRANSFER OF PATIENT CARE. PATIENT RESTING IN [place], NADN, VSS, CALL LIGHT WITHIN REACH, NO FURTHER NEEDS AT THIS TIME.
[2020-07-28 12:14] LABS: FREE T4 (FREE THYROXINE) 0.56 ng/dL (0.76-1.46)
--- NOTE | 2020-07-28 12:31 | NUR ---
REPORT GIVEN TO NIKKI KOWALSKI ON ONCOLOGY FOR TRANSFER OF PATIENT CARE.
--- NOTE | 2020-07-28 12:40 | NUR ---
PATIENT TRANSFERRED TO FLOOR IN STABLE CONDITION VIA GURNEY WITH RETAIL KEY HOLDER, ALL PATIENT BELONGINGS GATHERED AND TAKEN TO UNIT WITH PATIENT.
[2020-07-28] MEDS: SODIUM CHLORIDE 0.9% 1,000 ML IV SCH ×2 (13:06→22:00)
[2020-07-28] MEDS: LORazepam 2 MG/ML, 1ML IVPush PRN ×2 (13:10→17:26)
[2020-07-28 14:25] VITALS: BP 113/84
[2020-07-28] MEDS: OXYcodone IR 5MG TABLET PO PRN ×2 (14:37→20:29)
[2020-07-28] MEDS ORDERED: PROMETHAZINE 25 MG/ML, 1ML IM PRN (17:00)
[2020-07-28] MEDS ORDERED: METOCLOPRAMIDE 5 MG/ML, 2ML IVPush PRN (17:00)
[2020-07-28 18:25] VITALS: BP 123/89
[2020-07-28] MEDS ORDERED: TEMAZEPAM 15 MG CAPSULE PO PRN (21:00)
[2020-07-29 00:47] VITALS: BP 108/76
[2020-07-29 06:07] LABS: BASOPHILS % (AUTO) 0 % (0-1); EOSINOPHILS % (AUTO) 6 % (1-7); LYMPHOCYTES % (AUTO) 31 % (22-44); MEAN CORPUSCULAR HEMOGLOBIN 31.2 pg (27.0-34.8); MEAN CORPUSCULAR HGB CONC 32.7 g/dL (32.4-35.8); MEAN PLATELET VOLUME 8.5 fL (7.4-10.4); MONOCYTES % (AUTO) 12 % (2-9); NEUTROPHILS % (AUTO) 51 % (42-75); PLATELET COUNT 182 x10^3/uL (130-400); RED CELL DISTRIBUTION WIDTH 16.2 % (9.6-15.2)
[2020-07-29 06:08] LABS: MD NO
[2020-07-29 06:23] LABS: CHLORIDE 119 mmol/L (98-107)
[2020-07-29] MEDS: ONDANSETRON 2MG/ML, 2ML IVPush PRN ×2 (06:27→17:58)
[2020-07-29] MEDS: OXYcodone IR 5MG TABLET PO PRN ×3 (06:27→20:12)
[2020-07-29] MEDS: ENOXAPARIN 40 MG/0.4 ML SQ SCH (06:28)
[2020-07-29 06:45] LABS: ANION GAP 8 mmol/L (5-15); CALCIUM 8.5 mg/dL (8.5-10.1); CREATININE 1.19 mg/dL (0.55-1.02)
[2020-07-29] MEDS ORDERED: FAMOTIDINE 40 MG TABLET ONE (07:52)
[2020-07-29 07:54] VITALS: BP 125/88
[2020-07-29] MEDS: FAMOTIDINE 20 MG TABLET PO SCH (07:59)
[2020-07-29] MEDS ORDERED: LEVOFLOXACIN 750 MG TABLET PO SCH ×2 (10:00)
[2020-07-29] MEDS: SODIUM CHLORIDE 0.9% 1,000 ML IV SCH (10:09)
[2020-07-29] MEDS ORDERED: MAGNESIUM HYDROXIDE 8%, 30ML UDC PO SCH (10:30)
[2020-07-29] MEDS: SENNA/DOCUSATE TABLET PO SCH (11:26)
[2020-07-29] MEDS: D5%-0.45% NACL 1,000 ML IV SCH (11:34)
[2020-07-29 12:56] VITALS: BP 126/80
[2020-07-29 20:15] VITALS: BP 124/86
[2020-07-30] MEDS: D5%-0.45% NACL 1,000 ML IV SCH (00:41)
[2020-07-30 00:49] VITALS: BP 118/80
[2020-07-30 05:52] LABS: ANION GAP 6 mmol/L (5-15); CHLORIDE 116 mmol/L (98-107)
[2020-07-30 05:53] LABS: CREATININE 0.96 mg/dL (0.55-1.02)
[2020-07-30] MEDS: OXYcodone IR 5MG TABLET PO PRN (07:04)
[2020-07-30] MEDS: ENOXAPARIN 40 MG/0.4 ML SQ SCH (07:05)
[2020-07-30] MEDS ORDERED: LEVOFLOXACIN/PMX 750MG/150ML 150 ML IV SCH (08:00)
[2020-07-30] MEDS ORDERED: FAMOTIDINE 40 MG TABLET ONE (08:26)
[2020-07-30] MEDS: FAMOTIDINE 20 MG TABLET PO SCH (08:32)
[2020-07-30] MEDS: SENNA/DOCUSATE TABLET PO SCH (08:32)
[2020-07-30 08:37] VITALS: BP 135/94
[2020-07-30] MEDS ORDERED: THIAMINE 100MG TABLET PO SCH (09:00)
[2020-07-30] MEDS ORDERED: VENLAFAXINE 75 MG CAP ER PO SCH (10:00)
[2020-07-30] MEDS ORDERED: PHENAZOPYRIDINE 200 MG TABLET PO PRN (10:00)
[2020-07-30] MEDS ORDERED: THIA100T67 PO (10:51)
[2020-07-30] MEDS ORDERED: LEVO750T6 PO (10:51)
[2020-07-30] MEDS ORDERED: PHEN-583 PO (10:51)
== END 2020-07-30 12:45 | disposition home or self-care (01) ==
LOC: ED 08:26 → EDIP 11:35 → INTOOBSV 11:35 → 4NW 12:42
PROVIDERS: ADMIT Internal Medicine; ATTEND Internal Medicine
DX: R65.10 Systemic inflammatory response syndrome (SIRS) of non-infectious origin without acute organ dysfunction (principal); R11.2 Nausea with vomiting, unspecified; E86.0 Dehydration; I12.9 Hypertensive chronic kidney disease with stage 1 through stage 4 chronic kidney disease, or unspecified chronic kidney disease; N18.30 Chronic kidney disease, stage 3 unspecified; N30.90 Cystitis, unspecified without hematuria; E78.5 Hyperlipidemia, unspecified; K56.609 Unspecified intestinal obstruction, unspecified as to partial versus complete obstruction; K59.00 Constipation, unspecified; G40.909 Epilepsy, unspecified, not intractable, without status epilepticus; G89.4 Chronic pain syndrome; E43 Unspecified severe protein-calorie malnutrition; K56.7 Ileus, unspecified; K91.2 Postsurgical malabsorption, not elsewhere classified; M79.7 Fibromyalgia; Z85.42 Personal history of malignant neoplasm of other parts of uterus; Z85.068 Personal history of other malignant neoplasm of small intestine; Z85.43 Personal history of malignant neoplasm of ovary; Z86.19 Personal history of other infectious and parasitic diseases; Z79.899 Other long term (current) drug therapy; Z85.51 Personal history of malignant neoplasm of bladder; Z90.710 Acquired absence of both cervix and uterus; Z98.84 Bariatric surgery status; Z93.6 Other artificial openings of urinary tract status; Z87.891 Personal history of nicotine dependence
CPT/HCPCS: 36415; 74176; 76700; 80048; 80053; 81001; 83605; 83735; 84100; 84439; 84443; 84481; 84703; 85025; 87040; 87086; 96361; 96365; 96372; 96375; 96376; 99285; G0378; J1170; J1650; J1956; J2060; J2405; J2550; J2765; J7030

== ENCOUNTER 2021-01-18 20:58 | Observation (INO) | payer MEDICARE ==
[~2021-01-18] VITALS: Ht 167.6 cm; Wt 51.0 kg
[~2021-01-18 20:58] MED LIST changes: -ALPR0.5T6 PO; +ALPR0.5T93 PO; +CARI-389 PO; -CARI350T14 PO; +LEVO750T6 PO; -OXYC-302 PO; +OXYC1TAB14 PO; +PHEN-583 PO; +THIA100T67 PO; -VANC1VIA3 PO; +VANC1VIA36 PO
--- NOTE | 2021-01-18 21:43 | NUR ---
TASK RN: PT BIBA C/O ALOC. PER EMS, PT HAS UROSTOMY, PER "THIS HAPPENS WHEN HER OSTOMY BECOMES INFECTED. 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 ORIGINALLY A&OX3, AFTER PICK UP WORKER A&OX0. PT NOTED TO BE TWITCHING CONSISTENTLY, UNABLE TO FOLLOW COMMANDS AND A&OX0 WHEN MOVED TO ROOM. PT PLACED ON CONTINUOUS MONITORING. CALL LIGHT BELONGINGS WITHIN REACH.
--- NOTE | 2021-01-18 21:53 | NUR ---
REPORT TO PRIMARY RN TIMOTHY
[2021-01-18] MEDS ORDERED: SODIUM CHLORIDE 0.9% 1,000ML IVBOLUS ONE (22:00)
--- NOTE | 2021-01-18 22:13 | NUR ---
REPORT FROM [facility] AT BEDSIDE
--- NOTE | 2021-01-18 22:22 | NUR ---
UA WALKED TO LAB (STERILE SPECIMEN DIRECTLY FROM UROSTOMY SITE (UP STREAM FROM URIMETER TUBING)
[2021-01-18 22:31] LABS: ALBUMIN 3.7 g/dL (3.4-5.0); ANION GAP 5 mmol/L (5-15); CALCIUM 8.8 mg/dL (8.5-10.1); CHLORIDE 115 mmol/L (98-107); CREATININE 1.61 mg/dL (0.55-1.02)
[2021-01-18 22:32] LABS: BASOPHILS % (AUTO) 0 % (0-1); EOSINOPHILS % (AUTO) 0 % (1-7); LYMPHOCYTES % (AUTO) 7 % (22-44); MEAN CORPUSCULAR HEMOGLOBIN 31.6 pg (27.0-34.8); MEAN CORPUSCULAR HGB CONC 32.5 g/dL (32.4-35.8); MEAN PLATELET VOLUME 6.9 fL (7.4-10.4); MONOCYTES % (AUTO) 3 % (2-9); NEUTROPHILS % (AUTO) 90 % (42-75); PLATELET COUNT 312 x10^3/uL (130-400); RED BLOOD COUNT 3.73 x10^6/uL (3.82-5.3); RED CELL DISTRIBUTION WIDTH 15.2 % (9.6-15.2)
[2021-01-18 22:33] LABS: ALANINE AMINOTRANSFERASE 61 U/L (12-78); ALKALINE PHOSPHATASE 84 U/L (45-117); BILIRUBIN,TOTAL 0.3 mg/dL (0.2-1.0); TOTAL PROTEIN 7.8 g/dL (6.4-8.2)
[2021-01-18 22:52] LABS: MICROSCOPIC INDICATED
[2021-01-18] MEDS ORDERED: ERTAPENEM 1 GM in SODIUM CHLORIDE 0.9% 50 ML IV ONE (23:30)
--- NOTE | 2021-01-18 23:34 | NUR ---
ERP ASKED FOR BLOOD CULTURE ORDERS PRIOR TO ABX ADMIN. ERP DEFERRING NEED, STATES "WE JUST NEED THE URINE CULTURE." PATIENT WITH NO SIRS VITALS, HEAD BELLHOP CAPTAIN AGREEABLE. ABX ADM PER EMAR ARUNA BEEOS CULTURES 1L NS BOLUS 50% COMPLETE NEURO EXAM REMAINS CLOUSDED (PHENERGAN)
[2021-01-19 00:05] VITALS: BP 114/81
[2021-01-19] MEDS ORDERED: ATEN25TA PO (00:07)
[2021-01-19] MEDS ORDERED: CARI-389 PO (00:07)
[2021-01-19] MEDS ORDERED: METH1TAB13 PO (00:07)
[2021-01-19] MEDS ORDERED: MELATONIN 5 MG TABLET PO PRN (00:30)
[2021-01-19] MEDS ORDERED: BISACODYL 10 MG SUPP PR PRN (00:30)
[2021-01-19] MEDS ORDERED: ACETAMINOPHEN 325 MG TABLET PO PRN (00:30)
[2021-01-19 00:58] LABS: BASOPHILS % (AUTO) 0 % (0-1); EOSINOPHILS % (AUTO) 0 % (1-7); LYMPHOCYTES % (AUTO) 10 % (22-44); MEAN CORPUSCULAR HEMOGLOBIN 31.4 pg (27.0-34.8); MEAN CORPUSCULAR HGB CONC 31.7 g/dL (32.4-35.8); MEAN PLATELET VOLUME 6.7 fL (7.4-10.4); MONOCYTES % (AUTO) 5 % (2-9); NEUTROPHILS % (AUTO) 85 % (42-75); PLATELET COUNT 304 x10^3/uL (130-400); RED BLOOD COUNT 3.61 x10^6/uL (3.82-5.3)
[2021-01-19] MEDS: SODIUM CHLORIDE 0.9% 1,000 ML IV SCH ×3 (01:40→16:30)
[2021-01-19 05:55] LABS: ANION GAP 7 mmol/L (5-15); CALCIUM 8.4 mg/dL (8.5-10.1); CHLORIDE 119 mmol/L (98-107); CREATININE 1.22 mg/dL (0.55-1.02)
[2021-01-19 06:27] LABS: FREE T4 (FREE THYROXINE) 0.62 ng/dL (0.76-1.46)
[2021-01-19 08:47] VITALS: BP_SYST 108; BP_SYST 122; BP_DIAS 72; BP_DIAS 74
[2021-01-19 13:57] VITALS: BP 116/81
[2021-01-19] MEDS ORDERED: FAMO40TA4 PO (15:11)
[2021-01-19] MEDS ORDERED: ERTAPENEM 1 GM in SODIUM CHLORIDE 0.9% 50 ML IV SCH (23:30)
== END 2021-01-19 17:46 | disposition home or self-care (01) ==
LOC: ED 23:25 → UNDOADMIN 01-19 00:01 → EDIP 01-19 00:01 → 4NW 01-19 00:03 → EDIP 01-19 00:03 → INTOOBSV 01-19 00:27 → 4NW 01-19 00:27
PROVIDERS: ADMIT Internal Medicine; ATTEND Hospitalist
DX: N30.90 Cystitis, unspecified without hematuria (principal); G93.41 Metabolic encephalopathy; N17.0 Acute kidney failure with tubular necrosis; I12.9 Hypertensive chronic kidney disease with stage 1 through stage 4 chronic kidney disease, or unspecified chronic kidney disease; N18.30 Chronic kidney disease, stage 3 unspecified; K21.9 Gastro-esophageal reflux disease without esophagitis; M79.7 Fibromyalgia; G40.909 Epilepsy, unspecified, not intractable, without status epilepticus; G43.909 Migraine, unspecified, not intractable, without status migrainosus; R55 Syncope and collapse; K31.89 Other diseases of stomach and duodenum; F17.200 Nicotine dependence, unspecified, uncomplicated; E86.0 Dehydration; G89.4 Chronic pain syndrome; Z79.899 Other long term (current) drug therapy; Z87.440 Personal history of urinary (tract) infections; Z90.710 Acquired absence of both cervix and uterus; Z66 Do not resuscitate; Z85.068 Personal history of other malignant neoplasm of small intestine; Z85.42 Personal history of malignant neoplasm of other parts of uterus; Z85.51 Personal history of malignant neoplasm of bladder; Z86.19 Personal history of other infectious and parasitic diseases; Z98.84 Bariatric surgery status
CPT/HCPCS: 36415; 73030; 80053; 80320; 81001; 83735; 84439; 84443; 84481; 85025; 87077; 87086; 87186; 93005; 96361; 96365; 99284; G0378; J1335; J7030; 80048; G0480